=== PATIENT | male | born 1975 | race Caucasian/White ===

== ENCOUNTER 2017-05-16 20:45 | Emergency (ER) | payer OTHER ==
[~2017-05-16] VITALS: Ht 180.3 cm; Wt 87.6 kg
[2017-05-16 20:49] VITALS: TEMP 37.3; Ht 180.3 cm; Wt 87.6 kg
[2017-05-16] MEDS ORDERED: IBUP-103 PO (21:35)
[2017-05-16 21:40] LABS: BASO % 0.6 %; BASO ABS # 0.05 K/uL (0-0.2); COMPLETE YES; EOS % 1.1 %; HEMATOCRIT 45.9 % (42-52); IG% 0.6 %; LYMPH % 23.3 %; LYMPH ABS # 2.04 K/uL (1.2-3.4); MEAN CELL VOLUME 91.1 fL (80-100); MEAN CORPUSCULAR HEMOGLOBIN 32.3 pg (25-34); MEAN CORPUSCULAR HGB CONC 35.5 g/dl (32-36); MEAN PLATELET VOLUME 10.8 fL (7.4-10.4); MONO % 9.9 %; NEUT % 64.5 %; PLATELET COUNT 243 K/uL (130-400); RED BLOOD COUNT 5.04 M/uL (4.7-6.1); WHITE BLOOD COUNT 8.75 K/uL (4.8-10.8)
[2017-05-16 22:00] LABS: ALT/SGPT 83 U/L (12-78); BLOOD UREA NITROGEN 8 mg/dl (7-18); BUN/CREATININE RATIO 7.6 (10-20); CALCIUM 9.3 mg/dl (8.5-10.1); CARBON DIOXIDE 26 mmol/L (21-32); CHLORIDE 99 mmol/L (98-107); CREATININE 1.11 mg/dl (0.60-1.40); GLUCOSE 101 mg/dl (70-99); POTASSIUM 3.4 mmol/L (3.5-5.1); SODIUM 135 mmol/L (136-145)
[2017-05-16 22:05] LABS: ALB/GLOB RATIO 1.1 (0.9-2); ALKALINE PHOSPHATASE 89 U/L (45-117); AST/SGOT 105 U/L (15-37)
[2017-05-16] MEDS ORDERED: OPTIRAY 320 IV PRN (22:15)
[2017-05-16 22:27] LABS: URINE APPEARANCE CLEAR (CLEAR); URINE BILIRUBIN NEG (NEG); URINE COLOR YELLOW; URINE NITRITE NEG (NEG); URINE PH 6.5 (4.5-7.5); URINE SPECIFIC GRAVITY 1.021 (1.000-1.030); UROBILINOGEN NEG (NEG); ZZUR CULT IF INDIC CLEAN CATCH NO
[2017-05-16 22:41] LABS: MANUAL MICROSCOPIC REQUIRED? NO; REVIEW REQ? NO
--- NOTE | 2017-05-16 23:15 | EMERGENCY ROOM VISIT NOTE ---
History First contact with patient: 20:51 Chief Complaint: ABDOMINAL PAIN Stated Complaint: PAIN UNDER LT RIBS Nursing Triage Summary: Pt c/o severe left sided abdominal pain over the last couple of months, increased today with nausea and decreased appetite. History of Present Illness The patient is a 42 year old male who presents to the Emergency Room with complaints of abdominal pain which has been ongoing for a few weeks but has been worse over the past 2-3 days. He states the pain is located in the left upper to mid abdomen. He states that it is a dull, throbbing pain and rates the discomfort a 5/10. He denies any aggravating or alleviating factors. He states that the pain has made it difficult to sleep over the past few days. He has felt weak and shaky. The he has associated loose stools and nausea and had one episode of vomiting today. He took Advil without relief. The patient does admit that he is a fairly heavy drinker. He has approximately 6 shots of liquor every day. He smokes cigarettes occasionally. He denies any history of abdominal surgery or abdominal problems. He denies any urinary symptoms, fevers /chills, chest pain or shortness of breath. Review of Systems A complete 10 point review of systems was reviewed with the patient with pertinent positives and negatives as per history of present illness. All else were negative. Past Medical/Surgical History Surgical Problems: (1) History of vasectomy Social History Smoking Status: Current Every Day Smoker Alcohol Use: heavy Drug Use: none Marital Status: Housing Status: lives with family Occupation Status: employed Current/Historical Medications Scheduled Omeprazole (Prilosec), 40 MG PO DAILY Scheduled PRN Ibuprofen Tab (Advil), 400 MG PO UD PRN for Pain or Fever Physical Exam Vital Signs Date Time Temp Pulse Resp B/P (MAP) Pulse Ox O2 Delivery O2 Flow Rate FiO2 05/17/17 00:18 93 18 152/96 99 05/16/17 22:34 98 18 155/92 98 Room Air 05/16/17 20:49 37.3 109 18 188/93 98 Room Air Physical Exam VITALS: Vitals are noted on the nurse's note and reviewed by myself. Vital signs stable. GENERAL: This is a 42-year-old male, in no acute distress, nondiaphoretic, well- developed well-nourished. SKIN: The skin was without rashes. MOUTH: Mucous membranes moist. HEART: Regular rate and rhythm without murmurs gallops or rubs. LUNGS: Clear to auscultation bilaterally without wheezes, rales or rhonchi. No retractions or accessory muscle use. ABDOMEN: Positive bowel sounds x 4. Soft, moderate tenderness to palpation over the left upper quadrant/left mid abdomen. No guarding or rebound tenderness. NEURO: Patient was alert and oriented to person place and time. Medical Decision & Procedures ER Provider Diagnostic Interpretation: CT ABDOMEN & PELVIS WITH CONTRAST: Lower thorax is unremarkable. The liver, spleen, pancreas, and adrenal glands are unremarkable. Kidneys, ureters and urinary bladder are unremarkable. Appendix is unremarkable. Submucosal fat is seen throughout the colon, which is nonspecific. Remote healed left seventh rib fracture. Radiologist: Donavan Pruitt MD Laboratory Results 05/16/17 21:10 Red Blood Count 5.04, Mean Corpuscular Volume 91.1, Mean Corpuscular Hemoglobin 32.3, Mean Corpuscular Hemoglobin Concent 35.5, Mean Platelet Volume 10.8, Neutrophils (%) (Auto) 64.5, Lymphocytes (%) (Auto) 23.3, Monocytes (%) (Auto) 9.9, Eosinophils (%) (Auto) 1.1, Basophils (%) (Auto) 0.6, Neutrophils # (Auto) 5.64, Lymphocytes # (Auto) 2.04, Monocytes # (Auto) 0.87, Eosinophils # (Auto) 0.10, Basophils # (Auto) 0.05 05/16/17 21:10 Test 05/16/17 21:10 05/16/17 22:03 White Blood Count 8.75 K/uL (4.8-10.8) Red Blood Count 5.04 M/uL (4.7-6.1) Hemoglobin 16.3 g/dL (14.0-18.0) Hematocrit 45.9 % (42-52) Mean Corpuscular Volume 91.1 fL (80-100) Mean Corpuscular Hemoglobin 32.3 pg (25-34) Mean Corpuscular Hemoglobin Concent 35.5 g/dl (32-36) Platelet Count 243 K/uL (130-400) Mean Platelet Volume 10.8 fL (7.4-10.4) Neutrophils (%) (Auto) 64.5 % Lymphocytes (%) (Auto) 23.3 % Monocytes (%) (Auto) 9.9 % Eosinophils (%) (Auto) 1.1 % Basophils (%) (Auto) 0.6 % Neutrophils # (Auto) 5.64 K/uL (1.4-6.5) Lymphocytes # (Auto) 2.04 K/uL (1.2-3.4) Monocytes # (Auto) 0.87 K/uL (0.11-0.59) Eosinophils # (Auto) 0.10 K/uL (0-0.5) Basophils # (Auto) 0.05 K/uL (0-0.2) RDW Standard Deviation 41.9 fL (36.4-46.3) RDW Coefficient of Variation 12.6 % (11.5-14.5) Immature Granulocyte % (Auto) 0.6 % Immature Granulocyte # (Auto) 0.05 K/uL (0.00-0.02) Anion Gap 10.0 mmol/L (3-11) Est Creatinine Clear Calc Drug Dose 93.2 ml/min Estimated GFR () 95.1 Estimated GFR (Non- 82.0 BUN/Creatinine Ratio 7.6 (10-20) Calcium Level 9.3 mg/dl (8.5-10.1) Total Bilirubin 0.6 mg/dl (0.2-1) Aspartate Amino Transf (AST/SGOT) 105 U/L (15-37) Alanine Aminotransferase (ALT/SGPT) 83 U/L (12-78) Alkaline Phosphatase 89 U/L (45-117) Troponin I < 0.015 ng/ml (0-0.045) Total Protein 8.2 gm/dl (6.4-8.2) Albumin 4.3 gm/dl (3.4-5.0) Globulin 3.9 gm/dl (2.5-4.0) Albumin/Globulin Ratio 1.1 (0.9-2) Lipase 217 U/L (73-393) Urine Color YELLOW Urine Appearance CLEAR (CLEAR) Urine pH 6.5 (4.5-7.5) Urine Specific [place] 1.021 (1.000-1.030) Urine Protein NEG (NEG) Urine Glucose (UA) NEG (NEG) Urine Ketones TRACE (NEG) Urine Occult Blood NEG (NEG) Urine Nitrite NEG (NEG) Urine Bilirubin NEG (NEG) Urine Urobilinogen NEG (NEG) Urine Leukocyte Esterase NEG (NEG) Medications Administered Medications (Trade) Dose Ordered Sig/Stew Route Start Time Stop Time Status Last Admin Dose Admin Sucralfate (Carafate Susp) 1 gm NOW STAT PO 05/16/17 23:53 05/16/17 23:54 DC 05/17/17 00:10 1 GM Dicyclomine HCl (Dicyclomine HCl 10MG Home Pack) 1 ea UD ONCE PO 05/17/17 00:00 05/17/17 00:01 DC 05/17/17 00:09 1 EA ECG Rate (beats per minute): 92 Rhythm: normal sinus Findings: no acute ischemic change, no ectopy Comparison ECG Date: no prior available Medical Decision Differential diagnosis includes gastritis, gastroenteritis, diverticulitis, bowel obstruction, pancreatitis, pneumonia, PE, among others. The patient is a 42-year-old male who presents today complaining of left upper quadrant abdominal pain. Patient has had gradually worsening pain over the past few weeks. He states symptoms have worsened over the past few days, prompting him to come here. Labs revealed no leukocytosis or anemia. No concerning electrolyte abnormalities. Creatinine is within normal limits. LFTs are slightly elevated, consistent with patient's heavy alcohol use. CT of the abdomen and pelvis was performed and shows no acute findings. Findings were discussed with the patient. I do feel his symptoms are likely secondary to a gastritis, especially given his heavy alcohol use. I do not suspect lung pathology, as the patient is clearly tender over the left upper to mid abdomen and he has associated nausea and loose stools. I recommended that he start Prilosec and follow-up closely with the primary care provider. He is agreeable to this and understands that he may return at any time if his symptoms seem to worsen or if the need arises. The patient's case was reviewed with Dr. Barnett, ED attending physician, who agreed with my assessment and treatment plan. Based on the patient's presentation and work up, I feel the patient is stable for outpatient treatment. The patient was educated to return to the emergency department for any worsening of their current condition or new/concerning symptoms. He will follow up with primary care. Medication Reconcilliation Current Medication List: was personally reviewed by me Blood Pressure Screening Patient's blood pressure: Elevated blood pressure Blood pressure disposition: Elevated BP felt to be situational, Referred to PCP Impression Primary Impression: Abdominal pain, left upper quadrant Departure Information Dispostion Home / Self-Care Condition GOOD Prescriptions Omeprazole (PRILOSEC) 40 Mg Cap 40 MG PO DAILY for 14 Days, #14 CAP Prov: Krista Kc PA-C 05/17/17 Referrals No Doctor, Assigned (PCP) Patient Instructions My [facility] Additional Instructions You have been treated in the Emergency Department your Abdominal Pain. Laboratory results and imaging studies have ruled out any emergent causes for your abdominal pain which would warrant admission or surgery. Take the Prilosec daily for the next 2 weeks. You should take this medication in the morning before you have anything to eat. Avoid spicy foods, alcohol, caffeine, chocolate, tomato based foods and citrus, as these all may exacerbate your symptoms. You may use [id number] medications like Tums to help reduce your symptoms. Drink plenty of water and stay well hydrated. As with any trip to the Emergency Department, you should follow-up with your Primary Care Provider from today's visit. Call to schedule an appointment within the next week. Return to the emergency department if your symptoms persist despite treatment plan outlined above or if the following symptoms occur: Worsening abdominal pain , vomiting, fever, lightheadedness/weakness, shortness of breath or any other new/concerning symptoms.
[2017-05-16] MEDS ORDERED: SUCRALFATE 1 GM/10 ML UDC PO STA (23:53)
[2017-05-17] MEDS ORDERED: BENTYL HOME PACK 10 MG VIAL PO ONE
[2017-05-17] MEDS ORDERED: OMEP40CA41 PO (00:03)
[2017-05-17 00:18] VITALS: BP 152/96; PULSE 93; O2SAT 99
--- NOTE | 2017-05-17 07:25 | DIAGNOSTIC IMAGING REPORT ---
ABDOMEN AND PELVIS CT WITH IV CONTRAST CT DOSE: 755.02 mGycm HISTORY: Left upper quadrant abdominal pain. TECHNIQUE: Multiaxial CT images of the abdomen and pelvis were performed following the use of intravenous contrast. A dose lowering technique was utilized adhering to the principles of ALARA. COMPARISON STUDY: Pelvis CT 11/30/2013. FINDINGS: There is a healing/healed nondisplaced left anterior seventh rib fracture. The spleen, liver, gallbladder, adrenal glands, pancreas, kidneys, and gallbladder are unremarkable. No retroperitoneal lymphadenopathy. The bladder is not well-distended but appears unremarkable. No definite bowel wall thickening or obstruction. Normal appendix. No retroperitoneal lymphadenopathy. IMPRESSION: 1. No acute abnormality within the abdomen or pelvis. 2. No bowel wall thickening or obstruction. 3. Healing/healed left anterior seventh rib fracture. Electronically signed by: Clinton Pimentel M.D. 05/17/2017 7:23 AM Dictated Date/Time: 05/17/2017 7:20 AM
== END 2017-05-17 00:19 | disposition home or self-care (01) ==
LOC: C.EDB 20:46
DX: R10.12 Left upper quadrant pain (principal); R19.7 Diarrhea, unspecified; R11.2 Nausea with vomiting, unspecified; F17.200 Nicotine dependence, unspecified, uncomplicated; F10.99 Alcohol use, unspecified with unspecified alcohol-induced disorder; R03.0 Elevated blood-pressure reading, without diagnosis of hypertension; R94.5 Abnormal results of liver function studies